=== PATIENT | male | born 1950 | race Caucasian/White ===

== ENCOUNTER 2021-03-27 13:59 | Emergency (ER) | payer MEDICARE, OTHER ==
[2021-03-27 15:13] LABS: HEMOGLOBIN 14.5 gm/dl (14.0-17.5); RED BLOOD COUNT 4.81 M/UL (4.20-5.50); WHITE BLOOD COUNT 10.1 K/UL (4.5-11.0)
[2021-03-27 15:33] LABS: BUN/CREATININE RATIO 12 (0-10)
== END 2021-03-27 21:00 | disposition home or self-care (01) ==
LOC: ER1 13:59
PROVIDERS: Physician Assistant Medical
DX: S22.31XA Fracture of one rib, right side, initial encounter for closed fracture (principal); R10.9 Unspecified abdominal pain; R05.9 Cough, unspecified; R11.0 Nausea; I10 Essential (primary) hypertension; Z90.49 Acquired absence of other specified parts of digestive tract; X58.XXXA Exposure to other specified factors, initial encounter
CPT/HCPCS: 71045; 71250; 80053; 81001; 82550; 82553; 83874; 84484; 85025; 85379; 93005; 99284